=== PATIENT | male | born 1975 | race Caucasian/White ===

== ENCOUNTER 2018-03-22 11:01 | Emergency (ER) | payer MEDICAID, SELFPAY ==
[~2018-03-22] VITALS: Ht 170.2 cm; Wt 81.8 kg
[2018-03-22] MEDS ORDERED: ERYTHROMYCIN 0.5% 3.5 GM TUBE OPHTHALMIC OINTMENT OD ONE (12:15)
[2018-03-22 12:47] VITALS: BP 121/88
== END 2018-03-22 13:12 | disposition home or self-care (01) ==
LOC: EMS 11:02
DX: T15.11XA Foreign body in conjunctival sac, right eye, initial encounter (principal); X58.XXXA Exposure to other specified factors, initial encounter; Y93.89 Activity, other specified; Y92.89 Other specified places as the place of occurrence of the external cause; Y99.8 Other external cause status
CPT/HCPCS: 99283